=== PATIENT | female | born 1995 | race Caucasian/White ===

== ENCOUNTER 2017-06-20 02:17 | Day surgery (SDC) | payer MEDICAID ==
[~2017-06-20] VITALS: Ht 170.2 cm; Wt 68.5 kg
[2017-06-20 02:17] VITALS: BP_SYST 115
[2017-06-20 02:43] LABS: BASOPHILS # (AUTO) 0.1 K/uL (0.0-0.2); BASOPHILS % (AUTO) 0.5 % (0.0-2.0); EOSINOPHILS % (AUTO) 0.2 % (0.0-4.0); HEMATOCRIT 29.7 % (36-48); HEMOGLOBIN 10.3 g/dL (12.0-16.0); LYMPHOCYTES # (AUTO) 1.2 K/uL (1.0-5.5); LYMPHOCYTES % (AUTO) 11.5 % (20.5-51.5); MEAN CORPUSCULAR HEMOGLOBIN 31 pg (27-31); MEAN CORPUSCULAR HGB CONC 35 % (32-36); MEAN CORPUSCULAR VOLUME 89 fL (79.0-98.0); MONOCYTES # (AUTO) 0.7 K/uL (0.0-1.0); MONOCYTES % (AUTO) 6.7 % (1.7-9.3); NEUTROPHILS # (AUTO) 8.8 K/uL (1.8-7.7); NEUTROPHILS % (AUTO) 81.1 % (40.0-70.0); PLATELET COUNT (AUTO) 213 K/uL (130-430); RED BLOOD CELL COUNT(AUTO) 3.35 MIL/uL (4.2-6.2); RED CELL DISTRIBUTION WIDTH 12.3 % (9.0-15.0); WHITE BLOOD COUNT (AUTO) 10.8 K/uL (4.8-10.8)
[2017-06-20] MEDS ORDERED: MORPHINE 4 MG/ML INJ. SYRINGE IVP ONE ×2 (03:45→05:00)
[2017-06-20 05:20] LABS: HEMATOCRIT 28.1 % (36-48); HEMOGLOBIN 9.6 g/dL (12.0-16.0)
[2017-06-20 06:51] LABS: HEMATOCRIT 27.4 % (36-48); HEMOGLOBIN 9.3 g/dL (12.0-16.0)
[2017-06-20] MEDS ORDERED: HYDROcodone/ACETAMIN 5-325 MG TAB (NORCO/ VICODIN) PO PRN (08:30)
[2017-06-20] MEDS ORDERED: MEPERIDINE HCL/PF 50 MG/ML AMP IVP PRN (08:30)
[2017-06-20] MEDS ORDERED: ONDANSETRON HCL 4 MG/2 ML VIAL IVP PRN ×2 (08:30→09:30)
[2017-06-20] MEDS ORDERED: PROMETHAZINE HCL 25 MG/ML AMP IM PRN ×2 (08:30)
[2017-06-20] MEDS ORDERED: GLYCOPYRROLATE 0.2 MG/ML VIAL IJ ONE (08:40)
[2017-06-20] MEDS ORDERED: LR 1,000 ML IV.SOLN IV ONE (08:40)
[2017-06-20] MEDS ORDERED: MIDAZOLAM HCL 5 MG/5 ML VIAL IVP ONE (08:40)
[2017-06-20] MEDS ORDERED: NS IRRIG SOLN 1000 ML IR ONE (08:40)
[2017-06-20] MEDS ORDERED: BUPIVACAINE /EPINEPHRINE/PF 0.5% 30 ML VIAL INJ ONE (08:40)
[2017-06-20] MEDS ORDERED: CLINDAMYCIN PHOSPHATE 600 mg/50mL D5W IV ONE (08:40)
[2017-06-20] MEDS ORDERED: NS 1000 ML BAG IV ONE (08:40)
[2017-06-20] MEDS ORDERED: NEOSTIGMINE METHYLSULFATE 1 MG/ML, 10 ML VIAL IVP ONE (08:40)
[2017-06-20] MEDS ORDERED: SEVOFLURANE 15 MIN GAS INH ONE (08:40)
[2017-06-20] MEDS ORDERED: fentaNYL CITRATE/PF 100 MCG/2 ML AMP IVP ONE (08:40)
[2017-06-20] MEDS ORDERED: ROCURONIUM BROMIDE 10 MG/ML (ZEMURON) IV ONE (08:40)
[2017-06-20] MEDS ORDERED: PROPOFOL 200MG/ 20ML VIAL (DIPRIVAN) IV ONE (08:40)
[2017-06-20] MEDS ORDERED: fentaNYL CITRATE/PF 100 MCG/2 ML AMP IVP PRN ×2 (09:30)
[2017-06-20] MEDS ORDERED: fentaNYL CITRATE/PF 100 MCG/2 ML AMP ONE (10:47)
[2017-06-20 11:15] VITALS: BP_SYST 97
[2017-06-20] MEDS: OXYCODONE/ACETAMINOPHEN 5-325 TABLET PO PRN ×2 (13:48→17:37)
[2017-06-20 14:18] VITALS: BP_SYST 97
[2017-06-20] MEDS ORDERED: OXYC-130 PO (16:26)
[2017-06-20 16:30] VITALS: BP_SYST 99
[2017-06-20 17:55] VITALS: BP_SYST 97
== END 2017-06-20 18:30 | disposition home or self-care (01) ==
LOC: SED 02:17 → SDS 08:22 → SMU 08:33 → SDS 18:30
PROVIDERS: ATTEND Specialist
DX: O00.102 Left tubal pregnancy without intrauterine pregnancy (principal); Z88.8 Allergy status to other drugs, medicaments and biological substances; Z88.0 Allergy status to penicillin
CPT/HCPCS: 36415; 59151; 76801; 84702; 85018; 85025; 86886; 86900; 86901; 87081; 88305; C1727; C1782; J2250; J2270; J2405; J2550; J2704; J2710; J3010; J3490 ×3; J7030; J7120